=== PATIENT | female | born 1940 | race Caucasian/White ===

== ENCOUNTER 2020-07-26 14:47 | Inpatient (IN) ==
[2020-07-26] MEDS ORDERED: Isovue-370 500 ML BOTTLE IVP ONE (15:15)
[2020-07-26 15:50] LABS: Basophils # 0.1 K/mcL (0.0-0.2); Basophils % 0.8 %; Eosinophils # 0.1 K/mcL (0.0-0.6); Hematocrit 37.1 % (35.3-44.9); Hemoglobin 12.3 g/dL (11.5-15.4); Immature Granulocytes % 0.4 % (0-4); Lymphocytes # 1.1 K/mcL (0.6-4.6); Lymphocytes % 12.5 %; Mean Corpuscular HGB Conc 33.2 g/dL (31.6-35.5); Mean Corpuscular Hemoglobin 30.1 pg (28.0-33.3); Mean Corpuscular Volume 90.9 fL (83.0-100.0); Mean Platelet Volume 9.2 fL (9.4-12.4); Monocytes # 0.8 K/mcL (0.0-1.3); Monocytes % 9.5 %; Neutrophils # 6.4 K/mcL (1.6-8.9); Platelet Count 427 K/mcL (140-400); Red Blood Count 4.08 M/mcL (3.82-4.97); Red Cell Distribution Width 13.4 % (11.5-14.5); Segmented Neutrophils % 75.8 %; White Blood Count 8.4 K/mcL (4.3-11.1)
[2020-07-26 16:29] LABS: BUN/Creatinine Ratio 12 (6-26); Blood Urea Nitrogen 8 mg/dL (8-23); Calcium 9.3 mg/dL (8.6-10.3); Carbon Dioxide 27 mEq/L (23-29); Chloride 98 mEq/L (98-107); Glucose 114 mg/dL (70-105); Osmolality,Calculated 279 (280-300); Potassium 4.1 mEq/L (3.5-5.1); Sodium 135 mEq/L (136-145); Troponin I < 0.03 ng/mL (< 0.04); eGFR For African Americans > 60 (> 60); eGFR For Non-African Americans > 60 (> 60)
[2020-07-26 16:52] LABS: INR 5.1; Prothrombin Time 56.2 Seconds (9.4-12.1)
[2020-07-26] MEDS ORDERED: Naloxone 0.4 MG/ML INJ IVP PRN (17:44)
[2020-07-26] MEDS ORDERED: Melatonin 3 MG TABLET PO PRN (17:44)
[2020-07-26] MEDS ORDERED: Mag Hydrox/Al Hydrox/Simeth 30 ML UDC PO PRN (17:44)
[2020-07-26] MEDS ORDERED: Ondansetron ODT 4 MG TAB.RAPDIS SL PRN (17:44)
[2020-07-26] MEDS ORDERED: cefTRIAXone 1,000 MG in Water for inj. (sterile) 10 ML IVP SCH (19:00)
[2020-07-26] MEDS: Azithromycin 500 MG in 0.9 % Sodium Chloride 250 ML IVPB SCH ×2 (21:47→22:00)
[2020-07-26] MEDS ORDERED: Doxycycline 100 MG in 0.9 % Sodium Chloride Mini Bag 100 ML IVPB SCH (23:00)
[2020-07-27] MEDS: Acetaminophen 325 MG TABLET PO PRN ×2 (03:36→04:56)
[2020-07-27 07:45] LABS: Hematocrit 36.2 % (35.3-44.9); Hemoglobin 11.8 g/dL (11.5-15.4); Mean Corpuscular HGB Conc 32.6 g/dL (31.6-35.5); Mean Corpuscular Hemoglobin 29.3 pg (28.0-33.3); Mean Corpuscular Volume 89.8 fL (83.0-100.0); Mean Platelet Volume 9.6 fL (9.4-12.4); Platelet Count 422 K/mcL (140-400); Red Blood Count 4.03 M/mcL (3.82-4.97); Red Cell Distribution Width 13.3 % (11.5-14.5); White Blood Count 8.5 K/mcL (4.3-11.1)
[2020-07-27 08:05] LABS: INR 5.2; Prothrombin Time 57.3 Seconds (9.4-12.1)
[2020-07-27 08:10] LABS: BUN/Creatinine Ratio 11 (6-26); Blood Urea Nitrogen 7 mg/dL (8-23); Calcium 8.9 mg/dL (8.6-10.3); Carbon Dioxide 25 mEq/L (23-29); Chloride 101 mEq/L (98-107); Glucose 100 mg/dL (70-105); Osmolality,Calculated 278 (280-300); Potassium 3.8 mEq/L (3.5-5.1); Sodium 135 mEq/L (136-145); eGFR For African Americans > 60 (> 60); eGFR For Non-African Americans > 60 (> 60)
[2020-07-27] MEDS ORDERED: Doxycycline 100 MG in 0.9 % Sodium Chloride Mini Bag 100 ML IVPB SCH (11:00)
[2020-07-27] MEDS: Doxycycline 100 MG CAPSULE PO SCH (20:34)
[2020-07-27] MEDS: Cefdinir 300 MG CAPSULE PO SCH (20:34)
[2020-07-28 03:06] LABS: Hematocrit 33.1 % (35.3-44.9); Hemoglobin 10.8 g/dL (11.5-15.4); Mean Corpuscular HGB Conc 32.6 g/dL (31.6-35.5); Mean Corpuscular Hemoglobin 29.8 pg (28.0-33.3); Mean Corpuscular Volume 91.2 fL (83.0-100.0); Mean Platelet Volume 9.1 fL (9.4-12.4); Platelet Count 404 K/mcL (140-400); Red Blood Count 3.63 M/mcL (3.82-4.97); Red Cell Distribution Width 13.4 % (11.5-14.5); White Blood Count 8.1 K/mcL (4.3-11.1)
[2020-07-28 03:21] LABS: BUN/Creatinine Ratio 28 (6-26); Blood Urea Nitrogen 16 mg/dL (8-23); Calcium 8.5 mg/dL (8.6-10.3); Carbon Dioxide 26 mEq/L (23-29); Chloride 101 mEq/L (98-107); Glucose 104 mg/dL (70-105); Osmolality,Calculated 281 (280-300); Potassium 3.8 mEq/L (3.5-5.1); Sodium 135 mEq/L (136-145); eGFR For African Americans > 60 (> 60); eGFR For Non-African Americans > 60 (> 60)
[2020-07-28] MEDS ORDERED: Tiotropium 10 INH DOSE IH ONE (07:25)
[2020-07-28] MEDS: Tiotropium 10 INH DOSE IH SCH (07:32)
[2020-07-28] MEDS: Cefdinir 300 MG CAPSULE PO SCH ×2 (07:58→20:46)
[2020-07-28] MEDS: Doxycycline 100 MG CAPSULE PO SCH ×2 (07:58→20:45)
[2020-07-28] MEDS ORDERED: Perflutren Lipid Microsphere 1.3 ML in 0.9 % Sodium Chloride 8.7 ML IVP PRN (09:04)
[2020-07-28 11:56] LABS: INR 2.8; Prothrombin Time 31.2 Seconds (9.4-12.1)
[2020-07-28] MEDS: Apixaban 2.5 MG TABLET PO SCH (20:46)
[2020-07-29 01:06] LABS: Hematocrit 32.5 % (35.3-44.9); Hemoglobin 10.7 g/dL (11.5-15.4); Mean Corpuscular HGB Conc 32.9 g/dL (31.6-35.5); Mean Corpuscular Hemoglobin 29.7 pg (28.0-33.3); Mean Corpuscular Volume 90.3 fL (83.0-100.0); Mean Platelet Volume 9.1 fL (9.4-12.4); Platelet Count 371 K/mcL (140-400); Red Cell Distribution Width 13.4 % (11.5-14.5); White Blood Count 7.7 K/mcL (4.3-11.1)
[2020-07-29 01:13] LABS: INR 2.4; Prothrombin Time 26.9 Seconds (9.4-12.1)
[2020-07-29 01:25] LABS: BUN/Creatinine Ratio 33 (6-26); Blood Urea Nitrogen 21 mg/dL (8-23); Calcium 8.6 mg/dL (8.6-10.3); Carbon Dioxide 27 mEq/L (23-29); Chloride 101 mEq/L (98-107); Glucose 101 mg/dL (70-105); Osmolality,Calculated 285 (280-300); Potassium 3.9 mEq/L (3.5-5.1); Sodium 136 mEq/L (136-145); eGFR For African Americans > 60 (> 60); eGFR For Non-African Americans > 60 (> 60)
[2020-07-29 06:29] VITALS: BP 113/64
[2020-07-29] MEDS: Tiotropium 10 INH DOSE IH SCH (07:22)
[2020-07-29] MEDS: Acetaminophen 325 MG TABLET PO PRN (08:48)
[2020-07-29] MEDS: Apixaban 2.5 MG TABLET PO SCH (08:48)
[2020-07-29] MEDS: Cefdinir 300 MG CAPSULE PO SCH (08:49)
[2020-07-29] MEDS: Doxycycline 100 MG CAPSULE PO SCH (08:49)
== END 2020-07-29 12:37 | disposition home or self-care (01) | DRG 175 ==
LOC: EMEROOARM 14:47 → 2NENU 14:47 → SUATTDRO 19:13 → 2NENU 20:07 → SUATTDRO 07-27 14:33
PROVIDERS: ADMIT Family Medicine; ATTEND Internal Medicine

== ENCOUNTER 2021-06-14 10:40 | Inpatient (IN) ==
[2021-06-14] MEDS ORDERED: 0.9 % Sodium Chloride 1,000 ML IVC ONE (11:26)
[2021-06-14] MEDS ORDERED: cefTRIAXone 1,000 MG in 0.9 % Sodium Chloride 10 ML IVP ONE (11:28)
[2021-06-14] MEDS ORDERED: methylPREDNISolone 125 MG/2 ML VIAL IVP ONE (11:28)
[2021-06-14 11:44] LABS: Basophils % 0.2 %; Eosinophils % 0.1 %; Hemoglobin 13.7 g/dL (11.5-15.4); Immature Granulocytes % 0.5 % (0-4); Mean Corpuscular HGB Conc 33.4 g/dL (31.6-35.5); Mean Corpuscular Hemoglobin 30.6 pg (28.0-33.3); Mean Corpuscular Volume 91.5 fL (83.0-100.0); Mean Platelet Volume 9.7 fL (9.4-12.4); Monocytes # 1.6 K/mcL (0.0-1.3); Monocytes % 9.4 %; Neutrophils # 14.4 K/mcL (1.6-8.9); Platelet Count 353 K/mcL (140-400); Red Blood Count 4.48 M/mcL (3.82-4.97); Red Cell Distribution Width 13.3 % (11.5-14.5); Segmented Neutrophils % 83.8 %; White Blood Count 17.2 K/mcL (4.3-11.1)
[2021-06-14 11:51] LABS: INR 1.3; Prothrombin Time 14.5 Seconds (9.4-12.1)
[2021-06-14 11:54] LABS: Activated Partial Thrombo Time 26.9 Seconds (26.0-36.0)
[2021-06-14 12:06] LABS: Alanine Aminotransferase 10 Units/L (7-52); Albumin 3.7 g/dL (3.5-5.7); Albumin/Globulin Ratio 1.2 (1.1-2.2); Alkaline Phosphatase 74 Units/L (34-104); Aspartate Amino Transferase 18 Units/L (13-39); BUN/Creatinine Ratio 14 (6-26); Bilirubin,Direct 0.1 mg/dL (0.0-0.2); Bilirubin,Indirect 0.9 mg/dL (0.0-1.0); Blood Urea Nitrogen 10 mg/dL (8-23); Calcium 9.2 mg/dL (8.6-10.3); Carbon Dioxide 31 mEq/L (23-29); Chloride 96 mEq/L (98-107); Globulin 3.1 g/dL (2.4-3.5); Glucose 120 mg/dL (70-105); Magnesium 1.9 mg/dL (1.6-2.6); Osmolality,Calculated 280 (280-300); Potassium 3.7 mEq/L (3.5-5.1); Sodium 135 mEq/L (136-145); Total Protein 6.8 g/dL (6.4-8.9); Troponin I < 0.03 ng/mL (< 0.04); eGFR For African Americans > 60 (> 60); eGFR For Non-African Americans > 60 (> 60)
[2021-06-14 12:19] LABS: Thyroid Stimulating Hormone 2.361 mcIU/mL (0.340-5.600)
[2021-06-14 12:38] LABS: Adenovirus Not Detected (Not Detect); Bordetella Pertussis Not Detected (Not Detect); Chlamydophila pneumoniae Not Detected (Not Detect); Coronavirus 229E Not Detected (Not Detect); Coronavirus HKU1 Not Detected (Not Detect); Coronavirus NL63 Not Detected (Not Detect); Coronavirus OC43 Not Detected (Not Detect); Human Metapneumovirus Not Detected (Not Detect); Human Rhinovirus/Enterovirus DETECTED (Not Detect); Influenza A Subtype 2009 H1 Not Detected (Not Detect); Influenza B Not Detected (Not Detect); Mycoplasma pneumoniae Not Detected (Not Detect); Parainfluenza Virus 1 Not Detected (Not Detect); Parainfluenza Virus 2 Not Detected (Not Detect); Parainfluenza Virus 3 Not Detected (Not Detect); Parainfluenza Virus 4 Not Detected (Not Detect); Respiratory Syncytial Virus Not Detected (Not Detect); SARS-CoV-2 Not Detected (Not Detect)
[2021-06-14 13:25] LABS: Bacteria,Urine Few per hpf (None-Few); Bilirubin,Urine Negative (Negative); Blood,Urine Negative (Negative); Clarity,Urine Clear (Clear); Color,Urine Yellow (Yellow); Glucose,Urine (UA) Normal (Normal); Ketones,Urine Negative (Negative); Leukocyte Esterase,Urine Negative (Negative); Mucus,Urine Few per lpf (None-Few); Nitrite,Urine Negative (Negative); PH,Urine 7.5 pH Units (5.0-8.0); Protein,Urine 50 mg/dL (Neg-Trace); RBC,Urine 0-3 per hpf (0-3); Specific Gravity,Urine 1.019 (1.010-1.025); Urobilinogen,Urine Normal (Normal); WBC,Urine 0-3 per hpf (0-3)
[2021-06-14] MEDS ORDERED: Azithromycin 500 MG in 0.9 % Sodium Chloride 250 ML IVPB ONE (13:44)
[2021-06-14] MEDS ORDERED: Benzonatate 100 MG CAPSULE PO ONE (13:45)
[2021-06-14] MEDS ORDERED: Ipratropium/Albuterol Neb 3 ML IH ONE (13:45)
[2021-06-14] MEDS ORDERED: Naloxone 0.4 MG/ML INJ IVP PRN (14:22)
[2021-06-14] MEDS ORDERED: Ondansetron 4 MG/2 ML VIAL IVP PRN (14:22)
[2021-06-14] MEDS ORDERED: 0.9 % Sodium Chloride 250 ML ONE (15:04)
[2021-06-14] MEDS: Ipratropium/Albuterol Neb 3 ML IH SCH ×2 (16:04→20:24)
[2021-06-14] MEDS: Ringers Solution, Lactated 1,000 ML IVC SCH (18:55)
[2021-06-14] MEDS: Budesonide/Formoterol 160/4.5 1 PUFF INH IH SCH (20:24)
[2021-06-14] MEDS: Apixaban 5 MG TABLET PO SCH (20:30)
[2021-06-14] MEDS: GuaiFENesin Liq 200 MG/10 ML UDC PO PRN (20:46)
[2021-06-14] MEDS: MethylPREDNISolone 40 MG/ML VIAL IVP SCH ×2 (23:51→23:53)
[2021-06-15] MEDS: Ipratropium/Albuterol Neb 3 ML IH SCH ×4 (04:15→22:01)
[2021-06-15 06:17] LABS: Basophils % 0.1 %; Hematocrit 33.5 % (35.3-44.9); Hemoglobin 11.1 g/dL (11.5-15.4); Immature Granulocytes % 0.4 % (0-4); Lymphocytes # 0.7 K/mcL (0.6-4.6); Lymphocytes % 5.3 %; Mean Corpuscular HGB Conc 33.1 g/dL (31.6-35.5); Mean Corpuscular Hemoglobin 30.5 pg (28.0-33.3); Mean Platelet Volume 10.1 fL (9.4-12.4); Monocytes # 0.2 K/mcL (0.0-1.3); Monocytes % 1.5 %; Neutrophils # 12.7 K/mcL (1.6-8.9); Platelet Count 300 K/mcL (140-400); Red Blood Count 3.64 M/mcL (3.82-4.97); Red Cell Distribution Width 13.4 % (11.5-14.5); Segmented Neutrophils % 92.7 %; White Blood Count 13.7 K/mcL (4.3-11.1)
[2021-06-15 06:33] LABS: BUN/Creatinine Ratio 21 (6-26); Blood Urea Nitrogen 11 mg/dL (8-23); Calcium 8.3 mg/dL (8.6-10.3); Carbon Dioxide 29 mEq/L (23-29); Chloride 101 mEq/L (98-107); Glucose 134 mg/dL (70-105); Magnesium 1.8 mg/dL (1.6-2.6); Osmolality,Calculated 281 (280-300); Potassium 3.7 mEq/L (3.5-5.1); Sodium 135 mEq/L (136-145); eGFR For African Americans > 60 (> 60); eGFR For Non-African Americans > 60 (> 60)
[2021-06-15] MEDS: Tiotropium 10 INH DOSE IH SCH (07:33)
[2021-06-15] MEDS: Ringers Solution, Lactated 1,000 ML IVC SCH (08:01)
[2021-06-15] MEDS: Azithromycin 500 MG in 0.9 % Sodium Chloride 250 ML IVPB SCH (08:01)
[2021-06-15] MEDS: Apixaban 5 MG TABLET PO SCH ×2 (08:01→21:08)
[2021-06-15] MEDS: MethylPREDNISolone 40 MG/ML VIAL IVP SCH ×2 (08:02→16:37)
[2021-06-15] MEDS ORDERED: CRANBERRY 400 MG PO SCH (09:00)
[2021-06-15] MEDS: GuaiFENesin Liq 200 MG/10 ML UDC PO PRN ×2 (09:27→17:17)
[2021-06-15] MEDS: Budesonide/Formoterol 160/4.5 1 PUFF INH IH SCH ×2 (10:15→22:01)
[2021-06-16] MEDS: MethylPREDNISolone 40 MG/ML VIAL IVP SCH ×2 (00:26→08:01)
[2021-06-16] MEDS: Ipratropium/Albuterol Neb 3 ML IH SCH ×4 (03:57→23:15)
[2021-06-16] MEDS: GuaiFENesin Liq 200 MG/10 ML UDC PO PRN (08:01)
[2021-06-16] MEDS: Apixaban 5 MG TABLET PO SCH ×2 (08:01→20:33)
[2021-06-16] MEDS: Azithromycin 500 MG in 0.9 % Sodium Chloride 250 ML IVPB SCH (08:02)
[2021-06-16] MEDS: Tiotropium 10 INH DOSE IH SCH (10:40)
[2021-06-16] MEDS: Budesonide/Formoterol 160/4.5 1 PUFF INH IH SCH ×2 (10:41→23:14)
[2021-06-16] MEDS: predniSONE 20 MG TABLET PO SCH (11:37)
[2021-06-17] MEDS: GuaiFENesin Liq 200 MG/10 ML UDC PO PRN ×3 (04:02→23:48)
[2021-06-17] MEDS: Ipratropium/Albuterol Neb 3 ML IH SCH ×4 (04:22→19:31)
[2021-06-17 04:36] LABS: Basophils % 0.2 %; Hematocrit 34.4 % (35.3-44.9); Hemoglobin 11.5 g/dL (11.5-15.4); Immature Granulocytes % 0.8 % (0-4); Lymphocytes # 0.9 K/mcL (0.6-4.6); Lymphocytes % 6.1 %; Mean Corpuscular HGB Conc 33.4 g/dL (31.6-35.5); Mean Corpuscular Hemoglobin 30.5 pg (28.0-33.3); Mean Corpuscular Volume 91.2 fL (83.0-100.0); Mean Platelet Volume 9.7 fL (9.4-12.4); Monocytes # 1.5 K/mcL (0.0-1.3); Monocytes % 9.8 %; Neutrophils # 12.4 K/mcL (1.6-8.9); Platelet Count 356 K/mcL (140-400); Red Blood Count 3.77 M/mcL (3.82-4.97); Red Cell Distribution Width 13.2 % (11.5-14.5); Segmented Neutrophils % 83.1 %; White Blood Count 14.9 K/mcL (4.3-11.1)
[2021-06-17 04:53] LABS: BUN/Creatinine Ratio 35 (6-26); Blood Urea Nitrogen 20 mg/dL (8-23); Calcium 8.5 mg/dL (8.6-10.3); Carbon Dioxide 32 mEq/L (23-29); Chloride 98 mEq/L (98-107); Glucose 117 mg/dL (70-105); Osmolality,Calculated 284 (280-300); Potassium 3.6 mEq/L (3.5-5.1); Sodium 135 mEq/L (136-145); eGFR For African Americans > 60 (> 60); eGFR For Non-African Americans > 60 (> 60)
[2021-06-17] MEDS: Apixaban 5 MG TABLET PO SCH ×2 (08:59→20:41)
[2021-06-17] MEDS: predniSONE 20 MG TABLET PO SCH (08:59)
[2021-06-17] MEDS: Azithromycin 250 MG TABLET PO SCH (08:59)
[2021-06-17] MEDS: Budesonide/Formoterol 160/4.5 1 PUFF INH IH SCH ×2 (11:01→19:31)
[2021-06-17] MEDS: Tiotropium 10 INH DOSE IH SCH (11:03)
[2021-06-18] MEDS: Ipratropium/Albuterol Neb 3 ML IH SCH ×4 (05:04→22:27)
[2021-06-18] MEDS: Tiotropium 10 INH DOSE IH SCH (08:55)
[2021-06-18] MEDS: Budesonide/Formoterol 160/4.5 1 PUFF INH IH SCH ×2 (08:56→22:27)
[2021-06-18] MEDS: Apixaban 5 MG TABLET PO SCH ×2 (09:17→21:52)
[2021-06-18] MEDS: predniSONE 20 MG TABLET PO SCH (09:17)
[2021-06-18] MEDS: Azithromycin 250 MG TABLET PO SCH (09:18)
[2021-06-18 10:54] LABS: Bilirubin,Urine Negative (Negative); Blood,Urine Negative (Negative); Clarity,Urine Clear (Clear); Color,Urine Light-Yellow (Yellow); Glucose,Urine (UA) Normal (Normal); Ketones,Urine Negative (Negative); Leukocyte Esterase,Urine Negative (Negative); Nitrite,Urine Negative (Negative); Protein,Urine Trace mg/dL (Neg-Trace); Specific Gravity,Urine 1.018 (1.010-1.025); Urobilinogen,Urine Normal (Normal)
[2021-06-18] MEDS: GuaiFENesin Liq 200 MG/10 ML UDC PO PRN (14:37)
[2021-06-18] MEDS ORDERED: cefTRIAXone 1,000 MG in 0.9 % Sodium Chloride 10 ML IVP SCH (23:00)
[2021-06-19] MEDS: Ipratropium/Albuterol Neb 3 ML IH SCH ×4 (03:30→20:27)
[2021-06-19 06:02] LABS: BUN/Creatinine Ratio 28 (6-26); Blood Urea Nitrogen 13 mg/dL (8-23); Calcium 8.4 mg/dL (8.6-10.3); Carbon Dioxide 34 mEq/L (23-29); Chloride 95 mEq/L (98-107); Glucose 92 mg/dL (70-105); Osmolality,Calculated 274 (280-300); Potassium 3.5 mEq/L (3.5-5.1); Sodium 132 mEq/L (136-145); eGFR For African Americans > 60 (> 60); eGFR For Non-African Americans > 60 (> 60)
[2021-06-19 06:05] LABS: Basophils % 0.2 %; Eosinophils % 0.1 %; Red Blood Count 3.86 M/mcL (3.82-4.97); Red Cell Distribution Width 13.5 % (11.5-14.5)
[2021-06-19 06:06] LABS: Basophils # 0.1 K/mcL (0.0-0.2); Hematocrit 35.5 % (35.3-44.9); Hemoglobin 11.5 g/dL (11.5-15.4); Lymphocytes # 1.1 K/mcL (0.6-4.6); Lymphocytes % 4.3 %; Mean Corpuscular HGB Conc 32.4 g/dL (31.6-35.5); Mean Corpuscular Hemoglobin 29.8 pg (28.0-33.3); Mean Platelet Volume 10.2 fL (9.4-12.4); Monocytes # 1.8 K/mcL (0.0-1.3); Platelet Count 350 K/mcL (140-400); Segmented Neutrophils % 87.4 %
[2021-06-19 06:13] LABS: Neutrophils # 22.7 K/mcL (1.6-8.9)
[2021-06-19] MEDS: Apixaban 5 MG TABLET PO SCH ×2 (08:31→20:32)
[2021-06-19] MEDS: predniSONE 20 MG TABLET PO SCH (08:31)
[2021-06-19] MEDS ORDERED: Saline Nasal Spray 44 ML BOTTLE NS PRN (09:15)
[2021-06-19] MEDS: Tiotropium 10 INH DOSE IH SCH (09:19)
[2021-06-19] MEDS: Cefepime HCl 2,000 MG in 0.9 % Sodium Chloride 10 ML IVPB SCH ×2 (09:39→16:39)
[2021-06-19] MEDS: methylPREDNISolone 125 MG/2 ML VIAL IVP SCH ×3 (09:39→23:36)
[2021-06-19] MEDS: Budesonide/Formoterol 160/4.5 1 PUFF INH IH SCH ×2 (09:48→20:28)
[2021-06-19] MEDS: GuaiFENesin Liq 200 MG/10 ML UDC PO PRN (22:44)
[2021-06-20] MEDS: Ipratropium/Albuterol Neb 3 ML IH SCH ×4 (03:29→21:21)
[2021-06-20 05:10] LABS: Basophils % 0.2 %; Hematocrit 35.3 % (35.3-44.9); Hemoglobin 11.6 g/dL (11.5-15.4); Lymphocytes # 0.5 K/mcL (0.6-4.6); Lymphocytes % 2.8 %; Mean Corpuscular HGB Conc 32.9 g/dL (31.6-35.5); Mean Corpuscular Hemoglobin 29.7 pg (28.0-33.3); Mean Corpuscular Volume 90.3 fL (83.0-100.0); Monocytes # 0.4 K/mcL (0.0-1.3); Monocytes % 2.3 %; Neutrophils # 16.5 K/mcL (1.6-8.9); Platelet Count 367 K/mcL (140-400); Red Blood Count 3.91 M/mcL (3.82-4.97); Red Cell Distribution Width 13.3 % (11.5-14.5); Segmented Neutrophils % 93.7 %; White Blood Count 17.6 K/mcL (4.3-11.1)
[2021-06-20 05:12] LABS: BUN/Creatinine Ratio 40 (6-26); Blood Urea Nitrogen 22 mg/dL (8-23); Calcium 8.5 mg/dL (8.6-10.3); Carbon Dioxide 32 mEq/L (23-29); Chloride 95 mEq/L (98-107); Glucose 151 mg/dL (70-105); Osmolality,Calculated 280 (280-300); Sodium 132 mEq/L (136-145); eGFR For African Americans > 60 (> 60); eGFR For Non-African Americans > 60 (> 60)
[2021-06-20] MEDS: Cefepime HCl 2,000 MG in 0.9 % Sodium Chloride 10 ML IVPB SCH (05:12)
[2021-06-20] MEDS: GuaiFENesin Liq 200 MG/10 ML UDC PO PRN ×2 (08:06→15:31)
[2021-06-20] MEDS: Apixaban 5 MG TABLET PO SCH (08:06)
[2021-06-20] MEDS: methylPREDNISolone 125 MG/2 ML VIAL IVP SCH ×3 (08:06→23:53)
[2021-06-20] MEDS: Budesonide/Formoterol 160/4.5 1 PUFF INH IH SCH ×2 (10:55→21:21)
[2021-06-20] MEDS: Tiotropium 10 INH DOSE IH SCH (10:55)
[2021-06-20] MEDS: Piperacillin/Tazobactam 3.375 GM in 0.9 % Sodium Chloride Mini Bag 100 ML IVPB SCH ×2 (11:04→18:22)
[2021-06-20] MEDS: Magic Mouthwash 10 ML UD Cup PO SCH (20:32)
[2021-06-21] MEDS: Piperacillin/Tazobactam 3.375 GM in 0.9 % Sodium Chloride Mini Bag 100 ML IVPB SCH ×3 (01:45→18:08)
[2021-06-21 03:34] LABS: Basophils % 0.1 %; Hemoglobin 11.6 g/dL (11.5-15.4); Immature Granulocytes % 1.1 % (0-4); Lymphocytes # 0.4 K/mcL (0.6-4.6); Lymphocytes % 3.1 %; Mean Corpuscular HGB Conc 33.1 g/dL (31.6-35.5); Mean Corpuscular Volume 90.4 fL (83.0-100.0); Mean Platelet Volume 9.5 fL (9.4-12.4); Monocytes # 0.6 K/mcL (0.0-1.3); Monocytes % 4.6 %; Neutrophils # 12.5 K/mcL (1.6-8.9); Platelet Count 372 K/mcL (140-400); Red Blood Count 3.87 M/mcL (3.82-4.97); Red Cell Distribution Width 13.3 % (11.5-14.5); Segmented Neutrophils % 91.1 %; White Blood Count 13.8 K/mcL (4.3-11.1)
[2021-06-21 03:53] LABS: BUN/Creatinine Ratio 35 (6-26); Blood Urea Nitrogen 23 mg/dL (8-23); Calcium 8.4 mg/dL (8.6-10.3); Carbon Dioxide 32 mEq/L (23-29); Chloride 97 mEq/L (98-107); Glucose 156 mg/dL (70-105); Osmolality,Calculated 285 (280-300); Potassium 3.8 mEq/L (3.5-5.1); Sodium 134 mEq/L (136-145); eGFR For African Americans > 60 (> 60); eGFR For Non-African Americans > 60 (> 60)
[2021-06-21] MEDS: Ipratropium/Albuterol Neb 3 ML IH SCH ×4 (04:09→21:36)
[2021-06-21] MEDS: methylPREDNISolone 125 MG/2 ML VIAL IVP SCH ×3 (08:00→23:31)
[2021-06-21] MEDS ORDERED: *HR* Heparin 5,000 UNIT/ML VIAL IVP PRN ×2 (08:02)
[2021-06-21] MEDS: Magic Mouthwash 10 ML UD Cup PO SCH ×3 (08:02→15:47)
[2021-06-21] MEDS ORDERED: Heparin 25,000UNIT/250ML 1/2NS 25,000 UNIT/250 ML IV.SOLN IVC SCH (08:15)
[2021-06-21 08:49] LABS: Heparin anti-factor XA UFH 0.59 IU/mL (0.30-0.70)
[2021-06-21 08:52] LABS: Activated Partial Thrombo Time 26.5 Seconds (26.0-36.0)
[2021-06-21] MEDS: Heparin 25,000UNIT/250ML 1/2NS 25,000 UNIT/250 ML IV.SOLN IVC SCH (10:13)
[2021-06-21] MEDS: Budesonide/Formoterol 160/4.5 1 PUFF INH IH SCH ×2 (10:25→21:36)
[2021-06-21] MEDS: Tiotropium 10 INH DOSE IH SCH (10:25)
[2021-06-22] MEDS: Piperacillin/Tazobactam 3.375 GM in 0.9 % Sodium Chloride Mini Bag 100 ML IVPB SCH ×3 (01:03→17:14)
[2021-06-22] MEDS: Ipratropium/Albuterol Neb 3 ML IH SCH ×4 (03:51→20:01)
[2021-06-22] MEDS: methylPREDNISolone 125 MG/2 ML VIAL IVP SCH ×3 (07:34→23:58)
[2021-06-22] MEDS: Magic Mouthwash 10 ML UD Cup PO SCH ×3 (07:35→15:12)
[2021-06-22] MEDS: Tiotropium 10 INH DOSE IH SCH (09:42)
[2021-06-22] MEDS: Budesonide/Formoterol 160/4.5 1 PUFF INH IH SCH ×2 (09:43→20:01)
[2021-06-22] MEDS ORDERED: E-Z-PAQUE (BARIUM SULF) SUSP 1 BOTTLE PO ONE (13:28)
[2021-06-22] MEDS ORDERED: E-Z-HD (BARIUM SULF) SUSPENSION PO ONE (13:28)
[2021-06-22] MEDS: Heparin 25,000UNIT/250ML 1/2NS 25,000 UNIT/250 ML IV.SOLN IVC SCH (17:15)
[2021-06-23] MEDS: Piperacillin/Tazobactam 3.375 GM in 0.9 % Sodium Chloride Mini Bag 100 ML IVPB SCH ×3 (02:53→22:00)
[2021-06-23] MEDS: Ipratropium/Albuterol Neb 3 ML IH SCH ×4 (03:29→21:23)
[2021-06-23 06:50] LABS: Basophils % 0.2 %; Hematocrit 34.4 % (35.3-44.9); Hemoglobin 11.3 g/dL (11.5-15.4); Immature Granulocytes % 1.3 % (0-4); Lymphocytes # 0.4 K/mcL (0.6-4.6); Lymphocytes % 3.4 %; Mean Corpuscular HGB Conc 32.8 g/dL (31.6-35.5); Mean Corpuscular Hemoglobin 30.1 pg (28.0-33.3); Mean Corpuscular Volume 91.7 fL (83.0-100.0); Mean Platelet Volume 9.7 fL (9.4-12.4); Monocytes # 0.6 K/mcL (0.0-1.3); Neutrophils # 11.4 K/mcL (1.6-8.9); Platelet Count 373 K/mcL (140-400); Red Blood Count 3.75 M/mcL (3.82-4.97); Red Cell Distribution Width 12.9 % (11.5-14.5); Segmented Neutrophils % 90.1 %; White Blood Count 12.7 K/mcL (4.3-11.1)
[2021-06-23 07:01] LABS: BUN/Creatinine Ratio 47 (6-26); Blood Urea Nitrogen 23 mg/dL (8-23); Calcium 8.3 mg/dL (8.6-10.3); Carbon Dioxide 34 mEq/L (23-29); Chloride 96 mEq/L (98-107); Glucose 137 mg/dL (70-105); Osmolality,Calculated 282 (280-300); Potassium 3.7 mEq/L (3.5-5.1); Sodium 133 mEq/L (136-145); eGFR For African Americans > 60 (> 60); eGFR For Non-African Americans > 60 (> 60)
[2021-06-23] MEDS: methylPREDNISolone 125 MG/2 ML VIAL IVP SCH ×2 (07:27→20:53)
[2021-06-23] MEDS: Magic Mouthwash 10 ML UD Cup PO SCH ×3 (07:27→15:52)
[2021-06-23] MEDS: Budesonide/Formoterol 160/4.5 1 PUFF INH IH SCH ×2 (10:07→21:23)
[2021-06-23] MEDS: Tiotropium 10 INH DOSE IH SCH (10:07)
[2021-06-23] MEDS: Heparin 25,000UNIT/250ML 1/2NS 25,000 UNIT/250 ML IV.SOLN IVC SCH ×2 (21:16→21:54)
[2021-06-24] MEDS: Ipratropium/Albuterol Neb 3 ML IH SCH ×3 (03:21→15:45)
[2021-06-24] MEDS: Piperacillin/Tazobactam 3.375 GM in 0.9 % Sodium Chloride Mini Bag 100 ML IVPB SCH ×2 (06:01→15:02)
[2021-06-24 06:30] LABS: Basophils % 0.2 %; Hematocrit 36.6 % (35.3-44.9); Hemoglobin 12.1 g/dL (11.5-15.4); Immature Granulocytes % 2.1 % (0-4); Lymphocytes # 0.5 K/mcL (0.6-4.6); Lymphocytes % 3.6 %; Mean Corpuscular HGB Conc 33.1 g/dL (31.6-35.5); Mean Corpuscular Volume 90.8 fL (83.0-100.0); Mean Platelet Volume 9.4 fL (9.4-12.4); Monocytes # 0.7 K/mcL (0.0-1.3); Monocytes % 4.9 %; Neutrophils # 12.2 K/mcL (1.6-8.9); Platelet Count 397 K/mcL (140-400); Red Blood Count 4.03 M/mcL (3.82-4.97); Red Cell Distribution Width 12.7 % (11.5-14.5); Segmented Neutrophils % 89.2 %; White Blood Count 13.7 K/mcL (4.3-11.1)
[2021-06-24 07:38] LABS: BUN/Creatinine Ratio 37 (6-26); Blood Urea Nitrogen 19 mg/dL (8-23); Calcium 8.2 mg/dL (8.6-10.3); Carbon Dioxide 34 mEq/L (23-29); Chloride 97 mEq/L (98-107); Glucose 135 mg/dL (70-105); Osmolality,Calculated 284 (280-300); Potassium 3.7 mEq/L (3.5-5.1); Sodium 135 mEq/L (136-145); eGFR For African Americans > 60 (> 60); eGFR For Non-African Americans > 60 (> 60)
[2021-06-24] MEDS: Magic Mouthwash 10 ML UD Cup PO SCH ×3 (08:20→16:58)
[2021-06-24] MEDS: methylPREDNISolone 125 MG/2 ML VIAL IVP SCH (08:20)
[2021-06-24] MEDS ORDERED: Apixaban 5 MG TABLET PO SCH (09:00)
[2021-06-24] MEDS: Tiotropium 10 INH DOSE IH SCH (10:04)
[2021-06-24] MEDS: Budesonide/Formoterol 160/4.5 1 PUFF INH IH SCH (11:23)
[2021-06-24 19:12] VITALS: BP 100/60; PULSE 93; TEMP 97.4; O2SAT 93
[2021-06-25] MEDS ORDERED: methylPREDNISolone 125 MG/2 ML VIAL IVP SCH (09:00)
== END 2021-06-24 19:46 | disposition home health service (06) | DRG 871 ==
LOC: 3ANU 10:40 → EMEROOARM 10:40 → OBSVTOIN 17:29 → SUATTDRO 17:29 → 3ANU 18:35
PROVIDERS: ADMIT Internal Medicine; ATTEND Family Medicine